=== PATIENT | female | born 1975 | race Caucasian/White ===

== ENCOUNTER 2017-05-08 14:46 | Inpatient (IN) | payer OTHER ==
[~2017-05-08] VITALS: Ht 167.6 cm; Wt 67.3 kg
[~2017-05-08 14:46] MED LIST: LITHIUM CARBON300 MG PO; SEROQUEL100 MG PO
[2017-05-08 18:04] LABS: HEMATOCRIT 36.4 % (36.0-46.0); MCH 29.3 PG (29.0-34.0); MCV 88.8 FL (83-99); PLATELET COUNT 363 K/uL (156-360); RBC DIS.WIDTH-CV 12.9 % (11.8-14.6); RBC DIS.WIDTH-SD 42.1 % (39-53); WHITE BLOOD COUNT 10.5 K/uL (4.1-10.2)
[2017-05-08 18:16] LABS: ALBUMIN 4.1 g/dL (3.2-4.8)
[2017-05-08 18:17] LABS: CHLORIDE 107 mEq/L (99-109); POTASSIUM 3.8 mEq/L (3.7-5.4); SODIUM 136 mEq/L (136-147)
[2017-05-08 18:19] LABS: GLUCOSE 94 mg/dL (70-99); TOTAL PROTEIN 6.9 g/dL (6.4-8.3)
[2017-05-08 18:21] LABS: TOTAL BILIRUBIN 0.4 mg/dL (0.0-1.0)
[2017-05-08 18:22] LABS: ALKALINE PHOSPHATASE 41 IU/L (3-129); SERUM ETHYL ALCOHOL < 10 mg/dL
[2017-05-08 18:23] LABS: CREATININE 0.9 mg/dL (0.6-1.3); GFR ESTIMATE (CALCULATED) > 59 mL/min/
[2017-05-08 18:24] LABS: AST (GOT) 15 IU/L (2-34); UREA NITROGEN (BUN) 20 mg/dL (9-23)
[2017-05-08 18:26] LABS: ALT (GPT) 11 IU/L (3-49)
[2017-05-08 18:41] LABS: AMPHETAMINE NEGATIVE (500 ng/mL); BARBITURATES NEGATIVE (200 ng/mL); BENZODIAZEPINES NEGATIVE (150 ng/mL); BUPRENORPHINE NEGATIVE (10 ng/mL); COCAINE NEGATIVE (150 ng/mL); METHADONE NEGATIVE (200 ng/mL); METHAMPHETAMINE NEGATIVE (500 ng/mL); OPIATES (MORPHINE) NEGATIVE (100 ng/mL); OXYCODONE NEGATIVE (100 ng/mL); PHENCYCLIDINE NEGATIVE (25 ng/mL); PROPOXYPHENE NEGATIVE (300 ng/mL); THC CANNABINOIDS NEGATIVE (50 ng/mL); TRICYCLIC ANTIDEPRESSANTS NEGATIVE (300 ng/mL)
[2017-05-08] MEDS ORDERED: LITHOBID300 MG PO (20:23)
[2017-05-08] MEDS ORDERED: AIRBORNE EFFER1 EACH PO (20:24)
[2017-05-08] MEDS ORDERED: SYNTHROID25 MCG PO (20:24)
[2017-05-08] MEDS ORDERED: WHEY PROTEIN P907 GM PO (20:25)
[2017-05-08] MEDS ORDERED: B-COMPLEX-VITA1 EACH PO (20:25)
[2017-05-08] MEDS ORDERED: BENADRYL25 MG PO (20:26)
[2017-05-08] MEDS ORDERED: ZYRTEC10 M3 PO (20:26)
[2017-05-08] MEDS ORDERED: ADVIL200 MG PO (20:26)
[2017-05-08] MEDS ORDERED: VENTOLIN HFA18 GM IH (20:27)
[2017-05-08] MEDS ORDERED: SEROQUEL100 MG PO (20:27)
[2017-05-08 20:51] VITALS: BP 119/89
[2017-05-08 20:52] VITALS: BP 119/89
[2017-05-09 07:30] VITALS: BP 132/84
== END 2017-05-09 15:22 | DRG 885 ==
LOC: EME 14:46 → 1WEST 19:52 → EDOF 19:52 → ENRESERV 20:49 → 1WEST 20:49
PROVIDERS: Emergency Medicine
DX: F31.5 Bipolar disorder, current episode depressed, severe, with psychotic features (principal); R45.851 Suicidal ideations; F41.9 Anxiety disorder, unspecified; Z81.8 Family history of other mental and behavioral disorders
CPT/HCPCS: 36415; 80053; 80061; 84443; 84703; 85025; 85027; 90839; 93005; 99202; 99281; 99284; G0480